=== PATIENT | female | born 1970 | race Asian ===

== ENCOUNTER → 2017-01-09 | Outpatient (CLI) | payer OTHER ==
[2017-01-09 12:32] LABS: Basophils % (A) 1 %; CH 32.7; CHCM 34.3; Eosinophils # (A) 0.1 k/uL (0-0.7); Eosinophils % (A) 2 %; HDW 2.39; HGB 14.2 gm/dL (11.4-16.0); Luc # (Auto) 0.13; Luc % (Auto) 2; Lymphocytes # (A) 1.7 k/uL (1.0-4.8); Lymphocytes % (A) 26 %; MCH 33.1 pg (25.0-35.0); MCHC 34.6 g/dL (31.0-37.0); MCV 95.6 fL (80.0-100.0); Mean Platelet Volume 7.6; Monocytes # (A) 0.3 k/uL (0-1.0); Monocytes % (A) 5 %; Neutrophils # (A) 4.1 k/uL (1.3-7.7); Neutrophils % (A) 64 %; RDW 12.4 % (11.5-15.5); WBC 6.4 k/uL (3.8-10.6); WBC (Perox) 6.32
== END | disposition home or self-care (01) ==
LOC: LABPAT 12:03
PROVIDERS: ATTEND Obstetrics & Gynecology
DX: Z01.818 Encounter for other preprocedural examination (principal)
CPT/HCPCS: 36415; 85025

== ENCOUNTER 2017-01-16 06:27 | Day surgery (SDC) | payer OTHER ==
[2017-01-13 08:29] VITALS: BMI 28.3
--- NOTE | 2017-01-15 19:50 | P.HPOB ---
History of Present Illness H&P Date: 01/15/17 Chief Complaint: Irregular menses, intermenstrual spotting, recurrent ASCUS This is a 46-year-old female 1 para 1 who presents for dilation and curettage with hysteroscopy and NovaSure endometrial ablation secondary to irregular menses with intermenstrual spotting that has been persistent. She did not tolerate oral contraceptives very well and would like to avoid hormones if possible. Pelvic ultrasound showed uterus measuring 7.9 x 3.9 x 5.1 cm with endometrial stripe of 1.1 cm. Right ovary did have a small 1.2 cm cyst. Her recent Pap smear showed atypical squamous cells of undetermined significance with positive high risk HPV. She has had a colposcopy in the past and her show no abnormalities however she continues to have abnormal Pap smears. She has consented to a loop electrocautery excision procedure with colposcopy. Obstetrical history: . History of 1 vaginal delivery. Gynecologic history: She does have a history of gonorrhea and chlamydia treated in the past when she was a teenager. She also has a history of genital warts as a teenager. Her has had a vasectomy. Social history: She is and works at [employer]. Review of Systems Constitutional: Reports fatigue Ears, nose, mouth and throat: Denies headache, Denies sore throat Respiratory: Denies cough Gastrointestinal: Denies abdominal pain, Denies diarrhea, Denies nausea, Denies vomiting Genitourinary: Denies pelvic pain Menstruation: Reports cycle variable, Reports period spotting Musculoskeletal: Denies myalgias Neurological: Denies numbness, Denies weakness Past Medical History Additional Past Medical History / Comment(s): abnormal vaginal bleeding, cyst on ovary History of Any Multi-Drug Resistant Organisms: None Reported Past Surgical History: Breast Surgery Additional Past Surgical History / Comment(s): bunionectomy, breast augmentation Past Anesthesia/Blood Transfusion Reactions: Motion Sickness, Postoperative Nausea & Vomiting (PONV) Past Psychological History: Anxiety Smoking Status: Never smoker Past Alcohol Use History: Occasional Past Drug Use History: None Reported - Past Family History Mother Family Medical History: Hypertension Medications and Allergies Home Medications Medication Instructions Recorded Confirmed Type Biox-4 1 tab PO DAILY 01/13/17 01/13/17 History Vivscal 2 tab PO DAILY 01/13/17 01/13/17 History Allergies Allergy/AdvReac Type Severity Reaction Status Date / Time acetaminophen Allergy Nausea & Verified 01/13/17 08:22 [From Tylenol-Codeine #3] Vomiting codeine Allergy Nausea & Verified 01/13/17 08:22 Vomiting Exam Osteopathic Statement: *. No significant issues noted on an osteopathic structural exam other than those noted in the History and Physical/Consult. HEENT: Within normal limits Heart: Regular rate and rhythm Lungs: Clear to auscultation bilaterally Abdomen: Soft, nontender Pelvic exam: Uterus is small, anteverted, nontender with no adnexal masses palpated Extremities: Negative Homans Assessment and Plan (1) Irregular menses Status: Acute (2) Intermenstrual spotting Status: Acute (3) Atypical squamous cells of undetermined significance (ASCUS) on Papanicolaou smear of cervix Status: Chronic Plan: Proceed with dilation and curettage with hysteroscopy and NovaSure endometrial ablation along with loop electrocautery excision procedure and colposcopy. I have discussed the risks, benefits, and alternative therapies for the above- mentioned procedure and for both sedation/anesthesia as well as necessary blood products administration, if indicated, as they pertain to this patient. The patient has indicated her understanding and acceptance of the risks and procedures discussed.
[~2017-01-16 06:27] MED LIST: DEXAMETHASONE SOD PHOSPHATE 10 MG/ML 1 ML VIAL IV ONE; HYDROmorphone 1 MG/ML 1 ML SYRINGE IVP PRN; LACTATED RINGERS 1,000 ML IV SCH; LIDOCAINE 1% 20 ML VIAL (10MG/ML) FOR IV START INTRADERMA PRN; MIDAZOLAM 2 MG/2 ML VIAL IV PRN; ONDANSETRON 4 MG/2 ML VIAL IVP ONE; Pre Op ABX Message 1 EACH MISC MISCELLANE ONE; SCOPOLAMINE 1.5MG/72HR PATCH TRANSDERM ONE
[2017-01-16 06:50] VITALS: RESP 16
[2017-01-16] MEDS ORDERED: fentaNYL (PF) 50 MCG/ML 2 ML AMP ONE (07:30)
[2017-01-16] MEDS ORDERED: MIDAZOLAM 2 MG/2 ML VIAL ONE (07:30)
[2017-01-16] MEDS ORDERED: LIDOCAINE 1% INJ 10MG/ML (20 ML MDV) ONE (07:30)
[2017-01-16] MEDS ORDERED: PROPOFOL 10 MG/ML 20 ML VIAL IV ONE (07:30)
[2017-01-16] MEDS ORDERED: diphenhydrAMINE 50 MG/ML 1 ML VIAL ONE (07:30)
[2017-01-16] MEDS ORDERED: KETOROLAC 30 MG/ML 1 ML VIAL ONE (07:30)
[2017-01-16] MEDS ORDERED: FERRIC SUBSULFATE (MONSELS) JAR TOPICAL ONE (08:03)
[2017-01-16] MEDS ORDERED: BUPIVACAINE (PF) 0.5% 30 ML VIAL MISCELLANE ONE (08:03)
[2017-01-16] MEDS ORDERED: IODINE/POTASS IOD (LUGOLS) BTL TOPICAL ONE (08:03)
[2017-01-16] MEDS ORDERED: ACETIC ACID 15 DROPS/ML DROPS MISCELLANE ONE (08:03)
[2017-01-16] MEDS ORDERED: LIDOCAINE 1%-EPI 1:100,000 20 ML VIAL SUBMUCOSAL ONE (08:03)
--- NOTE | 2017-01-16 08:18 | P.OP ---
Date of Procedure: 01/16/17 Preoperative Diagnosis: 1. Irregular menses. 2. Intermenstrual spotting. 3. Recurrent atypical squamous cells of undetermined significance. Postoperative Diagnosis: Same Procedure(s) Performed: 1. Hysteroscopy with dilation and curettage and NovaSure endometrial ablation 2. Colposcopy 3. Loop electrocautery excision procedure Anesthesia: [facility] Surgeon: Shabana Washington Estimated Blood Loss (ml): 3 Pathology: other (Endometrial curettings, ectocervix with 12 o'clock position marked with a suture) Condition: stable Disposition: same day Indications for Procedure: This is a 46-year-old female 1 para 1 who presents for dilation and curettage with hysteroscopy and NovaSure endometrial ablation secondary to irregular menses with intermenstrual spotting that has been persistent. She did not tolerate oral contraceptives very well and would like to avoid hormones if possible. Pelvic ultrasound showed uterus measuring 7.9 x 3.9 x 5.1 cm with endometrial stripe of 1.1 cm. Right ovary did have a small 1.2 cm cyst. Her recent Pap smear showed atypical squamous cells of undetermined significance with positive high risk HPV. She has had a colposcopy in the past and her show no abnormalities however she continues to have abnormal Pap smears. She has consented to a loop electrocautery excision procedure with colposcopy. Operative Findings: Upon colposcopy, and no abnormalities were seen with either acetic acid and Lugol solution. Upon hysteroscopy, a dyssynchronous endometrial pattern was noted with no specific polyps or fibroids visualized. Both tubal ostia were noted. Uterus is mid position, sounded to 9 cm. Cervix is sounded to 4 cm. A minimal amount of endometrial curettings are obtained. Description of Procedure: The patient was taken to the operating room where she is placed in the dorsal lithotomy position. She is prepped and draped in the normal sterile fashion. Bladder was drained with a catheter and then removed. A coated bivalve speculum was placed in the patient's vagina. Colposcopy was performed using a blue light. Cervix is swabbed with 5% acetic acid and no abnormalities are seen. Next the cervix is swabbed with Lugol solution and no abnormalities again are seen. Transition zone is seen entirely. Next the cervix was circumferentially injected with a 50-50 mixture of 1% lidocaine with epinephrine and half percent Marcaine. Approximately 5 mL were injected circumferentially using a spinal needle. Next a large cutting loop was used to swipe from left to right removing the entire transition zone. The 12 o'clock position was marked with a suture. Next a ball-tipped cautery was used to cauterize the bed left behind. Excellent hemostasis was noted. Next the coated bivalve speculum was removed. Pelvic exam is performed under anesthesia. Uterus is found to be mid position with no adnexal masses. She is placed in slight Trendelenburg position. A right angle retractor is used to visualize the cervix. The anterior lip of the cervix is grasped with a single-tooth tenaculum. Cervix is sounded to 4 cm. Uterus is sounded to 9 cm. Cervix is gently dilated with Ash dilators until a hysteroscope could be passed. Hysteroscopy is performed using normal saline. The above noted findings are noted. Next a polyp forceps is introduced. A scant amount of tissue was obtained. Next medium-sized size sharp curette was placed. A minimal amount of endometrial curettings were obtained. Next NovaSure array was inserted into the endometrial cavity. Length was set at 5 cm and width was determined to be 2.8 cm. Next cavity assessment was completed and passed on the first try. Next NovaSure array was fired at 77 W for 79 seconds. Next the array was removed, inspected and then discarded. Next the hysteroscope was reinserted. Uniform charring was noted. Pictures were taken. Hysteroscope was removed. Single-tooth tenaculum was removed from the anterior lip of the cervix. Minimal bleeding was noted. Monsel solution was now applied to the cervix. Excellent hemostasis was noted. All other instruments removed from the vagina. Sponge counts were correct. Patient is taken to recovery room in stable condition.
[2017-01-16 08:39] VITALS: TEMP 98.4
[2017-01-16 09:44] VITALS: BP 109/77; PULSE 53
== END 2017-01-16 10:17 | disposition home or self-care (01) ==
LOC: OR 06:27
PROVIDERS: ATTEND Obstetrics & Gynecology
DX: N92.1 Excessive and frequent menstruation with irregular cycle (principal); N87.9 Dysplasia of cervix uteri, unspecified; R87.620 Atypical squamous cells of undetermined significance on cytologic smear of vagina (ASC-US); R87.810 Cervical high risk human papillomavirus (HPV) DNA test positive; N83.201 Unspecified ovarian cyst, right side; Z79.899 Other long term (current) drug therapy; Z88.6 Allergy status to analgesic agent; Z88.5 Allergy status to narcotic agent
CPT/HCPCS: 81025; 88305; 88307; 58563; 57460; J2250; J1200; J1100; J2405; J2001; J3010; J1885; J2704

== ENCOUNTER → 2020-06-03 | Outpatient (CLI) | payer BC ==
--- NOTE | 2020-06-03 09:42 | BD ---
EXAMINATION TYPE: Axial Bone Density DATE OF EXAM: 06/03/2020 COMPARISON: NONE CLINICAL HISTORY: Postmenopausal Height: 59 Weight: 134.3 FRAX RISK QUESTIONS: Alcohol (3 or more units per day): no Family History (Parent hip fracture): no Glucocorticoids (More than 3mos): no (Ex: prednisone, prednisolone, methylprednisolone, dexamethasone, and hydrocortisone). History of Fracture in Adulthood: no Secondary Osteoporosis: 1. Type 1 Diabetes: no 2. Hyperthyroidism: no 3. Menopause before 45: no 4. Malnutrition: no 5. Chronic liver disease: no Rheumatoid Arthritis: no Current Tobacco Use: no RISK FACTORS HISTORY OF: Family History of Osteoporosis: no Active: yes Diet low in dairy products/other sources of calcium: yes Postmenopausal woman: pt had an ablation at age 46 Lost more than 2 inches in height since high school: no MEDICATIONS: valtrex Additional History: EXAM MEASUREMENTS: Bone mineral densitometry was performed using the [employer] System. Bone mineral density as measured about the Lumbar spine is: ----- L1-L4(G/cm2): 1.174 T Score Values are as follows: ----- L2: -0.6 ----- L3: 0.6 ----- L4: 0.1 ----- L1-L4: 0.0 Bone mineral density : baseline Bone mineral density about the R hip (g/cm2): 0.831 Bone mineral density about the L hip (g/cm2): 0.862 T Score values are as follows: -----R Neck: -1.5 -----L Neck: -1.3 -----R Total: -0.6 -----L Total: -0.6 Bone mineral density : baseline IMPRESSION: Osteopenia (T Score between -2.5 and -1). There is slightly increased risk of fracture and the patient may be considered for treatment. Re-Screen 2-5 years. NOTE: T-SCORE=SD OF THE YOUNG ADULT MEAN.
== END | disposition home or self-care (01) ==
LOC: RADBDWWP 07:23
PROVIDERS: ATTEND Obstetrics & Gynecology
DX: M85.80 Other specified disorders of bone density and structure, unspecified site (principal)
CPT/HCPCS: 77080

== ENCOUNTER → 2021-07-01 | Outpatient (CLI) | payer BC ==
--- NOTE | 2021-07-01 13:51 | MM ---
Reason for exam: screening (asymptomatic). Last mammogram was performed 1 year and 3 months ago. History: Patient is postmenopausal. Retro-pectoral saline implants in both breasts, December 22, 2006. Benign left mammotome panel of the left breast, August 24, 2005. Took hormonal contraceptives for 8 years beginning at age 16. Physical Findings: A clinical breast exam by your physician is recommended on an annual basis and results should be correlated with mammographic findings. MG Screening Mammo Implant/CAD Bilateral CC and MLO view(s) were taken. Prior study comparison: March 31, 2020, bilateral MG screening mammo implant/CAD. July 16, 2018, bilateral MG screening mammo implant/CAD. The breast tissue is heterogeneously dense. This may lower the sensitivity of mammography. Previous mammotome biopsy in the left breast. There is no discrete abnormality. Bilateral subpectoral implants redemonstrated. ASSESSMENT: Benign, BI-RAD 2 RECOMMENDATION: Routine screening mammogram of both breasts in 1 year.
== END | disposition home or self-care (01) ==
LOC: RADMAMWWP 07:08
PROVIDERS: ATTEND Obstetrics & Gynecology
DX: Z12.31 Encounter for screening mammogram for malignant neoplasm of breast (principal); Z78.0 Asymptomatic menopausal state
CPT/HCPCS: 77067

== ENCOUNTER → 2022-07-04 | Outpatient (CLI) | payer BC ==
--- NOTE | 2022-07-04 19:55 | BD ---
EXAMINATION TYPE: Axial Bone Density DATE OF EXAM: 07/04/2022 CLINICAL HISTORY: 52 years year old Female. ICD-10 CODE: M85.88 DISORDER OF BONE Height: 59 Weight: 139.9 FRAX RISK QUESTIONS: Alcohol (3 or more units per day): NO Family History (Parent hip fracture): YES Glucocorticoids (More than 3mos): NO History of Fracture in Adulthood: NO Secondary Osteoporosis: 1. Type 1 Diabetes: NO 2. Hyperthyroidism: NO 3. Menopause before 45: NO 4. Malnutrition: NO 5. Chronic liver disease: NO Rheumatoid Arthritis: NO Current Tobacco Use: NO RISK FACTORS HISTORY OF: Hip Fracture (Right/Left): NO Spine Fracture: NO History of Wrist Fracture: NO Surgery to Spine/Hip(right/left)/Wrist (right/left): NO Family History of Osteoporosis: NO Active: YES Diet low in dairy products/other sources of calcium: YES Postmenopausal woman: YES Take estrogen and/or progesterone medications: NO Lost more than 2 inches in height since high school: NO Frequent falls: NO Poor Health: NO Hyperparathyroidism: NO Adrenal Insufficiency: NO MEDICATIONS: Prednisone or other steroids: NO Thyroid Medications: NO Osteoporosis Medications: NO Additional Medications: MULTI VIT., CALCIUM, VIT D, EXAM MEASUREMENTS: Bone mineral densitometry was performed using the [employer] System. Bone mineral density as measured about the Lumbar spine is: ----- L1-L4(G/cm2): 1.105 T Score Values are as follows: ----- L1: -1.3 ----- L2: -1.0 ----- L3: 0.0 ----- L4: -0.5 ----- L1-L4: -0.6 Bone mineral density has: DECREASED -5.3 % since study of: 06/03/2020 Bone mineral density about the R hip (g/cm2): 0.824 Bone mineral density about the L hip (g/cm2): 0.822 T Score values are as follows: -----R Neck: -1.6 -----L Neck: -1.5 -----R Total: -0.6 -----L Total: -0.8 Bone mineral density has: DECREASED -2.0 % since study of: 06/03/2020 FRAX%s: The graph provided illustrates a 10.9% chance for a major osteoporotic fx and a 0.5% chance f or the hips probability for fx in 10 years time. IMPRESSION: Osteopenia (T Score between -2.5 and -1). There is slightly increased risk of fracture and the patient may be considered for treatment. Re-Screen 2-5 years. NOTE: T-SCORE=SD OF THE YOUNG ADULT MEAN.
--- NOTE | 2022-07-05 17:10 | MM ---
Reason for Exam: Screening (asymptomatic). Last screening mammogram was performed 12 month(s) ago. Patient History: Menarche at age 12. First Full-Term at age 30. Late child-bearing (after 30). Postmenopausal. Patient has history of breast feeding. Hormonal Contraceptives for 8 years from age 16 until age 24. 08/24/2005, Benign Core Biopsy on the left side. 12/22/2006, Bilateral Implants. Risk Values: Mady 5 year model risk: 1.7%. NCI Lifetime model risk: 13.7%. Prior Study Comparison: 07/16/2018 Bilateral Screening Mammogram, [facility]. 03/31/2020 Bilateral Screening Mammogram, [facility]. 07/01/2021 Bilateral Screening Mammogram, [facility]. Tissue Density: The breast tissue is heterogeneously dense. This may lower the sensitivity of mammography. Findings: Analyzed By CAD. Bilateral breast prostheses are present. No suspicious groups of microcalcifications, spiculated or lobular masses, architectural distortion or other secondary signs of malignancy are mammographically apparent. Overall Assessment: Benign, BI-RAD 2 Management: Screening Mammogram of both breasts in 1 year. A negative mammogram report should not preclude additional follow up of suspicious palpable abnormalities. Patient should continue monthly self breast exam. A clinical breast exam by your physician is recommended on an annual basis and results should be correlated with mammographic findings. Electronically signed and approved by: Andres Burnett D.O. Radiologis
== END | disposition home or self-care (01) ==
LOC: RADBDWWP 07:19
PROVIDERS: ATTEND Obstetrics & Gynecology
DX: Z12.31 Encounter for screening mammogram for malignant neoplasm of breast (principal); M85.89 Other specified disorders of bone density and structure, multiple sites; Z78.0 Asymptomatic menopausal state
CPT/HCPCS: 77067; 77080

== ENCOUNTER → 2023-07-05 | Outpatient (CLI) | payer BC ==
--- NOTE | 2023-07-05 08:15 | MM ---
Reason for Exam: Hx of breast augmentation, asymptomatic. Last mammogram was performed 1 year(s) and 1 month(s) ago. Patient History: Menarche at age 12. First Full-Term at age 30. Late child-bearing (after 30). Postmenopausal. Patient has history of breast feeding. Hormonal Contraceptives for 8 years from age 16 until age 24. 08/24/2005, Benign Core Biopsy on the left side. 12/22/2006, Bilateral Implants. Risk Values: Mady 5 year model risk: 1.8%. NCI Lifetime model risk: 13.5%. Prior Study Comparison: 03/31/2020 Bilateral Screening Mammogram, [facility]. 07/01/2021 Bilateral Screening Mammogram, [facility]. 07/04/2022 Bilateral MG screening mammo implant/CAD, [facility]. Tissue Density: The breast tissue is heterogeneously dense. This may lower the sensitivity of mammography. Findings: Analyzed By CAD. Intact bilateral breast implants. Left breast surgical clip. There is no suspicious group of microcalcifications or new suspicious mass. Overall Assessment: Benign, BI-RAD 2 Management: Screening Mammogram of both breasts in [address] [facility] will attempt to contact patient to return for supplemental views and ultrasound if indicated. Patient should continue monthly self-breast exams. A clinical breast exam by your physician is recommended on an annual basis. This exam should not preclude additional follow-up of suspicious palpable abnormalities. Note on Mady scores and lifetime risk: 1. A Mady score greater than 3% is considered moderate risk. If this is the case, consider specialist referral to assess eligibility for a risk reducing agent. 2. If overall lifetime risk for the development of breast cancer is 20% or higher, the patient may qualify for future screening with alternating mammogram and breast MRI. Electronically signed and approved by: Dwayne Oneill DO
== END | disposition home or self-care (01) ==
LOC: RADMAMWWP 07:00
PROVIDERS: ATTEND Obstetrics & Gynecology
DX: Z12.31 Encounter for screening mammogram for malignant neoplasm of breast (principal); Z78.0 Asymptomatic menopausal state; Z98.82 Breast implant status
CPT/HCPCS: 77063; 77067

== ENCOUNTER → 2024-07-08 | Outpatient (CLI) | payer BC ==
--- NOTE | 2024-07-08 16:06 | MM ---
Reason for Exam: Hx of breast augmentation, asymptomatic. Last screening mammogram was performed 12 month(s) ago. Patient History: Menarche at age 12. First Full-Term at age 30. Late child-bearing (after 30). Postmenopausal. Patient has history of breast feeding. Hormonal Contraceptives for 8 years from age 16 until age 24. 08/24/2005, Benign Core Biopsy on the left side. 12/22/2006, Bilateral Implants. Risk Values: Mady 5 year model risk: 1.9%. NCI Lifetime model risk: 13.3%. Prior Study Comparison: 07/01/2021 Bilateral Screening Mammogram, [facility]. 07/04/2022 Bilateral MG screening mammo implant/CAD, [facility]. 07/05/2023 Bilateral MG 3D screen mammo imp/cad., [facility]. Tissue Density: The breasts are heterogeneously dense, which may obscure small masses. Findings: Analyzed By CAD. The pattern is symmetrical. Bilateral breast prostheses are present. Benign coarse calcifications are present bilaterally. No significant interval change is evident.No suspicious groups of microcalcifications, spiculated or lobular masses, architectural distortion or other secondary signs of malignancy are mammographically apparent. Overall Assessment: Benign, BI-RAD 2 Management: Screening Mammogram of both breasts in 1 year. A negative mammogram report should not preclude additional follow up of suspicious palpable abnormalities. Patient should continue monthly self breast exam. A clinical breast exam by your physician is recommended on an annual basis and results should be correlated with mammographic findings. Note on Mady scores and lifetime risk: 1. A Mady score greater than 3% is considered moderate risk. If this is the case, consider specialist referral to assess eligibility for a risk reducing agent. 2. If overall lifetime risk for the development of breast cancer is 20% or higher, the patient may qualify for future screening with alternating mammogram and breast MRI. [facility], , 07/08/2024 4:03 PM. Electronically signed and approved by: Andres Burnett D.O. Radiologis
== END | disposition home or self-care (01) ==
LOC: RADMAMWWP 07:24
PROVIDERS: ATTEND Obstetrics & Gynecology
DX: Z12.31 Encounter for screening mammogram for malignant neoplasm of breast (principal); Z78.0 Asymptomatic menopausal state; R92.333 Mammographic heterogeneous density, bilateral breasts; Z98.82 Breast implant status
CPT/HCPCS: 77063; 77067